=== PATIENT | female | born 1960 | race Hispanic/Latino ===

== ENCOUNTER 2018-01-31 09:32 | Emergency (ER) | payer OTHER ==
[2018-01-31 11:11] LABS: Absolute Lymphocytes (CBC) 1.8 K/uL (0.7-4.9); Absolute Monocytes 0.5 K/uL (0.1-1.3); Absolute Neutrophil 4.1 K/uL (1.8-8.0); Basophils % 0.4 % (0-1.3); Eosinophils % 2.3 % (0-4.4); Hematocrit 40.8 % (36.0-45.0); Lymphocytes % 27.5 % (15.3-44.8); MCH 30.8 pg (27.0-35.0); MCV 89.6 fL (80-100); MPV 10.9 fL (7.6-11.3); RBC Red Blood Cell Count 4.56 M/uL (3.86-4.86)
[2018-01-31 11:12] LABS: Protime INR 0.94
[2018-01-31 11:18] LABS: Bicarbonate 29 mEq/L (21-31); Glucose Level 113 mg/dL (65-120); Sodium Level 140 mEq/L (135-145)
[2018-01-31 11:24] LABS: ALT/SGPT 20 IU/L (10-60); AST/SGOT 22 IU/L (10-42); Alkaline Phosphatase 93 IU/L (42-121); BUN Blood Urea Nitrogen 14 mg/dL (6-20); Bilirubin Direct 0.1 mg/dL (0-0.2); Bilirubin Total 0.8 mg/dL (0.3-1.2); Magnesium 1.8 mg/dL (1.8-2.5); Protein, Total 7.1 g/dL (6.0-8.3)
--- NOTE | 2018-01-31 12:19 | RAD REPORT ---
EXAM DESCRIPTION: Danna Single View01/31/2018 11:03 am CLINICAL HISTORY: Chest pain COMPARISON: 2012 FINDINGS: The lungs appear clear of acute infiltrate. The heart is normal size IMPRESSION: No acute abnormalities displayed
--- NOTE | 2018-01-31 12:51 | RAD REPORT ---
EXAM DESCRIPTION: CT - Head Brain Wo Cont - 01/31/2018 12:41 pm CLINICAL HISTORY: Headache COMPARISON: 2009 TECHNIQUE: Computed axial tomography of the head was obtained. IV contrast was not requested. All CT scans are performed using dose optimization technique as appropriate and may include automated exposure control or mA/KV adjustment according to patient size. FINDINGS: An intracranial bleed is not seen . The ventricles are normal in caliber. No extra-axial fluid collection is noted. Fluid within the sinuses/ mastoids is not seen. IMPRESSION: No acute intracranial abnormality is seen. If patient's symptoms persist MRI of the bra in would be recommended.
[2018-01-31 12:59] LABS: Urine Blood TRACE (NEG); Urine Glucose NEGATIVE (NEG); Urine Protein NEGATIVE (NEG)
--- NOTE | 2018-01-31 13:08 | ER ---
Nurse's Notes [facility] Name: Kasey Altamirano Age: 57 yrs Sex: Female : 1960 Arrival Date: 01/31/2018 Time: 09:33 Bed 13 Private MD: Eb Katz Diagnosis: Pain in left arm Presentation: 01/31 10:01 Presenting complaint: Patient states: headache, nausea, L arm achiness that has gotten ss worse over the past two days. Transition of care: patient was not received from another setting of care. Onset of symptoms was January 29, 2018. Risk Assessment: Do you want to hurt yourself or someone else? Patient reports no desire to harm self or others. Initial Sepsis Screen: Does the patient meet any 2 criteria? No. Patient's initial sepsis screen is negative. Does the patient have a suspected source of infection? No. Patient's initial sepsis screen is negative. Care prior to arrival: None. 10:01 Method Of Arrival: Ambulatory ss 10:01 Acuity: JOSIAH 3 ss Historical: - Allergies: 10:03 Bactrim; ss - Home Meds: 10:03 losartan 100 mg oral tab 1 tab once daily [Active]; ss - PMHx: 10:03 Hypertension; ss - PSHx: 10:03 Hysterectomy; Cholecystectomy; left knee; ss - Immunization history:: Adult Immunizations up to date. - Social history:: Smoking status: Patient/guardian denies using tobacco. - Ebola Screening: : Patient denies exposure to infectious person Patient denies travel to an Ebola-affected area in the 21 days before illness onset. Screenin:04 Abuse screen: Denies threats or abuse. Denies injuries from another. Nutritional ss screening: No deficits noted. Tuberculosis screening: Never had TB. Fall Risk None identified. Assessment: 10:04 General: Appears uncomfortable, Behavior is calm, anxious, quiet, Reports fatigue for ss 2-3 days, Denies fever, feeling ill, chills. Pain: Complains of pain in left arm Pain currently is 4 out of 10 on a pain scale. Quality of pain is described as aching, Pain began 2-3 days ago. Is continuous. Neuro: Level of Consciousness is awake, alert, obeys commands, Oriented to person, place, time, situation. Neuro: Reports generalized headache that began 2 days ago. Cardiovascular: Capillary refill < 3 seconds is brisk in bilateral fingers. Respiratory: Airway is patent Respiratory effort is even, unlabored, Respiratory pattern is regular, symmetrical, Breath sounds are clear bilaterally. Respiratory: Denies cough, shortness of breath pain with respiration, pain with cough, pain with movement. GI: Reports nausea, Patient currently denies diarrhea, vomiting. : No signs and/or symptoms were reported regarding the genitourinary system. EENT: Oral mucosa is moist. Throat is clear. Derm: Skin is intact, is healthy with good turgor, Skin is dry, Skin is pink, warm \T\ dry. normal. Musculoskeletal: Capillary refill < 3 seconds, is brisk, in bilateral fingers. Swelling. 11:15 Reassessment: Patient and/or family updated on plan of care and expected duration. Pain hj level reassessed. Patient is alert, oriented x 3, equal unlabored respirations, skin warm/dry/pink. awaiting results;. Vital Signs: 10:03 BP 149 / 91; Pulse 77; Resp 16; Temp 98.5(TE); Pulse Ox 97% on R/A; Weight 104.33 kg; ss Height 5 ft. 1 in. (154.94 cm); Pain 5/10; 11:15 BP 149 / 73; Pulse 67; Resp 18; Pulse Ox 98% ; hj 13:34 BP 126 / 77; Pulse 72; Resp 18; Pulse Ox 97% on R/A; em 10:03 Body Mass Index 43.46 (104.33 kg, 154.94 cm) ED Course: 09:33 Patient arrived in ED. as 09:33 Eb Katz MD is Private Physician. as 10:03 Triage completed. ss 10:03 Arm band placed on right wrist. ss 10:04 Patient has correct armband on for positive identification. Bed in low position. Call ss light in reach. Side rails up X 1. courseware developer on. Pulse ox on. NIBP on. 10:06 Bhavesh Balbuena RN is Primary Nurse. hj 10:12 Brandan Monge PA is PHCP. jr8 10:12 Solomon Tanner MD is Attending Physician. jr8 11:03 X-ray completed. Portable x-ray completed in exam room. Patient tolerated procedure bb2 well. 11:03 XRAY Chest (1 view) In Process Unspecified. EDMS 11:06 Initial lab(s) drawn, by me, sent to lab. Urine collected: clean catch specimen, clear. 5 Inserted saline lock: 20 gauge in right antecubital area, using aseptic technique. Blood collected. 11:07 Side rails up X2. Warm blanket given. [facility] 11:10 EKG done, by ED staff, reviewed by Brandan ALVAREZ. [facility] 11:12 Bhavesh Balbuena, RN is Primary Nurse. 12:[address] 12:41 Patient moved back from [address]. sw 12:42 CT Head Brain wo Cont In Process Unspecified. EDMS 13:06 Eb Katz MD is Referral Physician. [facility] 13:33 Assist provider with bone marrow aspiration. IV discontinued, intact, bleeding em controlled, No redness/swelling at site. Pressure dressing applied. Administered Medications: No medications were administered Outcome: 13:07 Discharge ordered by MD. 8 13:33 Discharged to home ambulatory. em 13:33 Condition: good 13:33 Discharge instructions given to patient, Instructed on discharge instructions, follow up and referral plans. medication usage, Demonstrated understanding of instructions, follow-up care, medications, Prescriptions given X 2. 13:35 Patient left the ED. em Signatures: Dispatcher [employer] EDCA Dustin Mcduffie, LENS SHAPER GRINDER LENS SHAPER GRINDER Kayce Bonner Shelby, RN RN Brandan Juarez PA PA Danita Brown Bhavesh Balbuena, Alice High RN [facility] Dyan Ruff
--- NOTE | 2018-01-31 13:08 | EDPHYS ---
Physician Documentation [facility] Name: Kasey Altamirano Age: 57 yrs Sex: Female : 1960 Arrival Date: 01/31/2018 Time: 09:33 Bed 13 Private MD: Eb Katz ED Physician Solomon Tanner HPI: 01/31 10:42 This 57 yrs old Female presents to ER via Ambulatory with complaints of Arm jr8 Pain, Shoulder Pain. 10:42 The patient or guardian complains of pain. The complaints affect the left arm. Context: jr8 resulted from unknown cause. Onset: The symptoms/episode began/occurred acutely, 2 day(s) ago. Modifying factors: The symptoms are alleviated by nothing. the symptoms are aggravated by nothing. Associated signs and symptoms: Pertinent positives: nausea, headache. Severity of symptoms: At their worst the symptoms were moderate, in the emergency department the symptoms are unchanged. The patient has not experienced similar symptoms in the past. The patient has not recently seen a physician. Patient stated that her left arm has been aching for two days. Denies trauma to arm. Stated that she has had odd feeling dull headache and nausea as well. Denies chest pain or shortness of breath. Historical: - Allergies: 10:03 Bactrim; ss - Home Meds: 10:03 losartan 100 mg oral tab 1 tab once daily [Active]; ss - PMHx: 10:03 Hypertension; ss - PSHx: 10:03 Hysterectomy; Cholecystectomy; left knee; ss - Immunization history:: Adult Immunizations up to date. - Social history:: Smoking status: Patient/guardian denies using tobacco. - Ebola Screening: : Patient denies exposure to infectious person Patient denies travel to an Ebola-affected area in the 21 days before illness onset. ROS: 10:42 Eyes: Negative for injury, pain, redness, and discharge, ENT: Negative for injury, jr8 pain, and discharge, Neck: Negative for injury, pain, and swelling, Cardiovascular: Negative for chest pain, palpitations, and edema, Respiratory: Negative for shortness of breath, cough, wheezing, and pleuritic chest pain, Back: Negative for injury and pain, Skin: Negative for injury, rash, and discoloration. 10:42 Abdomen/GI: Positive for nausea, Negative for abdominal pain, vomiting, diarrhea, constipation, abdominal cramps, abdominal distension, anorexia, dysphagia, hematemesis, black/tarry stool, rectal pain, rectal bleeding, bowel incontinence, flatulence. 10:42 MS/extremity: Positive for pain, of the left arm. 10:42 Neuro: Positive for headache, Negative for altered mental status, dizziness, gait disturbance, hearing loss, loss of consciousness, numbness, seizure activity, speech changes, syncope, near syncope, tingling, tinnitus, tremor, visual changes, weakness. Exam: 10:42 Eyes: Pupils equal round and reactive to light, extra-ocular motions intact. Lids and jr8 lashes normal. Conjunctiva and sclera are non-icteric and not injected. Cornea within normal limits. Periorbital areas with no swelling, redness, or edema. ENT: Nares patent. No nasal discharge, no septal abnormalities noted. Tympanic membranes are normal and external auditory canals are clear. Oropharynx with no redness, swelling, or masses, exudates, or evidence of obstruction, uvula midline. Mucous membranes moist. Neck: Trachea midline, no thyromegaly or masses palpated, and no cervical lymphadenopathy. Supple, full range of motion without nuchal rigidity, or vertebral point tenderness. No Meningismus. Cardiovascular: Regular rate and rhythm with a normal S1 and S2. No gallops, murmurs, or rubs. Normal PMI, no JVD. No pulse deficits. Respiratory: Lungs have equal breath sounds bilaterally, clear to auscultation and percussion. No rales, rhonchi or wheezes noted. No increased work of breathing, no retractions or nasal flaring. Abdomen/GI: Soft, non-tender, with normal bowel sounds. No distension or tympany. No guarding or rebound. No evidence of tenderness throughout. Skin: Warm, dry with normal turgor. Normal color with no rashes, no lesions, and no evidence of cellulitis. MS/ Extremity: Pulses equal, no cyanosis. Neurovascular intact. Full, normal range of motion. Neuro: Awake and alert, GCS 15, oriented to person, place, time, and situation. Cranial nerves II-XII grossly intact. Motor strength 5/5 in all extremities. Sensory grossly intact. Cerebellar exam normal. Normal gait. 10:42 Back: pain, that is mild, of the left scapular area, ROM is normal, normal spinal alignment noted, CVA tenderness, is absent, vertebral tenderness, is not appreciated, muscle spasm, is not present. Vital Signs: 10:03 BP 149 / 91; Pulse 77; Resp 16; Temp 98.5(TE); Pulse Ox 97% on R/A; Weight 104.33 kg; ss Height 5 ft. 1 in. (154.94 cm); Pain 5/10; 11:15 BP 149 / 73; Pulse 67; Resp 18; Pulse Ox 98% ; hj 13:34 BP 126 / 77; Pulse 72; Resp 18; Pulse Ox 97% on R/A; em 10:03 Body Mass Index 43.46 (104.33 kg, 154.94 cm) ss MDM: 10:12 Patient medically screened. jr8 13:04 Data reviewed: vital signs, nurses notes, lab test result(s), EKG, radiologic studies, jr8 CT scan, plain films, and as a result, I will discharge patient. Data interpreted: Pulse oximetry: on room air is 98 %. Interpretation: normal. Counseling: I had a detailed discussion with the patient and/or guardian regarding: the historical points, exam findings, and any diagnostic results supporting the discharge/admit diagnosis, lab results, radiology results, the need for outpatient follow up, a family practitioner, to return to the emergency department if symptoms worsen or persist or if there are any questions or concerns that arise at home. ED course: No significant finding on CT or blood work. More then likely stain. Will try NSAIDs and Muscle relaxant. If not better in a week. Needs to f/u for c-spine imaging . 01/31 10:35 Order name: Basic Metabolic Panel; Complete Time: 11:40 01/31 10:35 Order name: BNP; Complete Time: 11:40 01/31 10:35 Order name: CBC with Diff; Complete Time: 11:40 01/31 10:35 Order name: LFT's; Complete Time: 11:40 01/31 10:35 Order name: Magnesium; Complete Time: 11:40 01/31 10:35 Order name: PT-INR; Complete Time: 11:40 01/31 10:35 Order name: Troponin (emerg Dept Use Only); Complete Time: 11:40 01/31 10:35 Order name: XRAY Chest (1 view); Complete Time: 12:24 01/31 10:35 Order name: EKG; Complete Time: 10:36 01/31 10:35 Order name: Cardiac monitoring; Complete Time: 11:12 01/31 10:35 Order name: EKG - Nurse/Tech; Complete Time: 11:12 01/31 10:35 Order name: IV Saline Lock; Complete Time: 11:12 01/31 10:49 Order name: Urine Dipstick--Ancillary (enter results); Complete Time: 13:04 1 01/31 12:25 Order name: CT Head Brain wo Cont; Complete Time: 12:58 01/31 10:35 Order name: Labs collected and sent; Complete Time: 11:12 01/31 10:35 Order name: O2 Per Protocol; Complete Time: 11:12 01/31 10:35 Order name: O2 Sat Monitoring; Complete Time: 11:13 01/31 10:35 Order name: Urine Dipstick-Ancillary (obtain specimen); Complete Time: 10:48 Administered Medications: No medications were administered Disposition: 19:03 Co-signature as Attending Physician, Solomon Tanner MD. Disposition: 01/31/18 13:07 Discharged to Home. Impression: Pain in left arm. - Condition is Stable. - Discharge Instructions: Musculoskeletal Pain. - Prescriptions for Mobic 7.5 mg Oral Tablet - take 1 tablet by ORAL route once daily take with food; 20 tablet. Cyclobenzaprine 10 mg Oral Tablet - take 1 tablet by ORAL route every 8 hours As needed; 30 tablet. - Medication Reconciliation Form, Thank You Letter, Antibiotic Education, Prescription Opioid Use form. - Follow up: Eb Katz MD; When: 1 week; Reason: Recheck today's complaints, Continuance of care, Re-evaluation by your physician. - Problem is new. - Symptoms have improved. Signatures: Dispatcher [employer] Dustin Bean, CHAR PULLER CHAR PULLER Glenis Franklin RN RN ss Roszak, Josh, KIM PA jr8 Bhavesh Balbuena RN RN hj Starr, Gregory, MD MD Corrections: (The following items were deleted from the chart) 13:35 13:07 01/31/2018 13:07 Discharged to Home. Impression: Pain in left arm. Condition is em Stable. Forms are Medication Reconciliation Form, Thank You Letter, Antibiotic Education, Prescription Opioid Use. Follow up: Eb Katz; When: 1 week; Reason: Recheck today's complaints, Continuance of care, Re-evaluation by your physician. Problem is new. Symptoms have improved. jr8
--- NOTE | 2018-02-01 06:42 | EKG ---
Test Date: 2018-01-31 Test Time: 10:36:07 Deblocker: LILIANA MEASUREMENT RESULTS: Intervals: Rate: 73 WV: 152 QRSD: 76 QT: 406 QTc: 447 [place]: P: 9 WV: 152 QRS: 1 T: 4 INTERPRETIVE STATEMENTS: Normal sinus rhythm Normal ECG Compared to ECG 08/15/2015 14:50:52 no significant change from previous ECG Electronically Signed On 02-01-18 06:41:48 CDT by Lorenzo Garcia
== END 2018-01-31 13:35 | disposition home or self-care (01) ==
LOC: ER 09:32
DX: M79.602 Pain in left arm (principal); I10 Essential (primary) hypertension; Z88.1 Allergy status to other antibiotic agents
CPT/HCPCS: 36415; 70450; 71045; 80048; 80076; 81003; 83735; 83880; 84484; 85025; 85610; 93005; 99285

== ENCOUNTER 2024-05-04 22:32 | Emergency (ER) | payer OTHER, SELFPAY ==
--- OUTSIDE RECORDS SUMMARY | 2024-05-04 22:35 | XMS REPORT | Continuity of Care Document ---
Author Name Unknown Address [address] [place] [address] [facility] Address [address] [place] [address] Care Team Providers Care Life Skills Educator Name Role Phone Unavailable Unavailable Unavailable Payers Payer Name Policy Type Policy Number Effective Date Expirati on Date Source Allergies, Adverse Reactions, Alerts Allergy Name Allergy Type Status Severity Reaction(s) Onset Date Inactive Date Treating Clinician Comments Source No Known Allergie s DA Active U 2017-08 00:00: 00 [facility] Encounters Start Date/Time End Date/Time Encounter Type Admission Type Attending Clinicians Care Facility Care Department Encounter ID Source 2024-04-06 16:50:13 2024-04-06 16:50:13 Outpatient [facility] [id number] Anup Brandon Otto 2024-02-04 07:50:33 2024-02-04 07:50:33 Outpatient [facility] SFA [id number] Anup Brandon Otto 2023-12-12 07:36:03 2023-12-12 07:36:03 Outpatient [facility] SFA [id number] Anup Brandon Otto 2023-11-07 07:25:47 2023-11-07 07:25:47 Outpatient [facility] SFA [id number] nAup Brandon Otto 2023-04-14 07:37:02 2023-04-14 07:37:02 Outpatient [facility] SFA [id number] Anup Aleksandr Otto 2022-12-18 07:30:05 2022-12-18 07:30:05 Outpatient [facility] SFA [id number] Anup Menjivar
[2024-05-04 23:26] LABS: Absolute Eosinophils 0.2 K/uL (0-0.5); Absolute Lymphocytes (CBC) 1.9 K/uL (0.7-4.9); Absolute Monocytes 0.7 K/uL (0.1-1.3); Absolute Neutrophil 4.5 K/uL (1.8-8.0); Basophils % 0.5 % (0-1.3); Eosinophils % 2.8 % (0-4.4); Hematocrit 39.8 % (36.0-45.0); Hemoglobin 13.5 g/dL (12.0-15.0); MCH 30.5 pg (27.0-35.0); MCHC 33.9 g/dL (32.0-36.0); MCV 90.1 fL (80-100); Monocytes % 9.1 % (3.3-12.3); Neutrophils % 61.6 % (41.7-73.7); Nucleated Red Blood Cells % 0.1 % (0-0); Platelets 185 thou/uL (152-406); RBC Red Blood Cell Count 4.42 M/uL (3.86-4.86); Red Cell Distribution Width 13.4 % (12.1-15.2)
[2024-05-04 23:32] LABS: PT Prothrombin Time 10.1 SECONDS (9.4-12.5); Protime INR 0.9
[2024-05-04 23:46] LABS: ALT/SGPT 30 U/L (13-56); AST/SGOT 19 U/L (15-37); Albumin 3.5 g/dL (3.4-5.0); Albumin/Globulin Ratio 0.9 (1.1-1.8); Alkaline Phosphatase 96 U/L (45-117); Anion Gap 8.6 mEq/L (5.0-15.0); BUN Blood Urea Nitrogen 16 mg/dL (7-18); Bicarbonate 27 mEq/L (21-32); Bilirubin Total 0.5 mg/dL (0.2-1.0); Globulin 3.7 g/dL (2.3-3.5); Glomerular Filtration Rate 69 ml/min (=/>90); Glucose Level 115 mg/dL (74-106); NT PRO-BNP 108 pg/mL (<125); Potassium 3.6 mEq/L (3.5-5.1); Protein, Total 7.2 g/dL (6.4-8.2); Sodium Level 139 mEq/L (136-145)
[2024-05-05 00:07] LABS: Bilirubin Direct < 0.2 mg/dL (0-0.2); Bilirubin Indirect, Calculated 0.3 mg/dL (0.2-0.8)
--- NOTE | 2024-05-05 00:49 | ER ---
Nurse's Notes [facility] Name: Kasey Altamirano Age: 63 yrs Sex: Female : 1960 Arrival Date: 05/04/2024 Time: 22:32 Bed 7 Private MD: Diagnosis: Episodic tension-type headache;Tinnitis Presentation: 05/04 23:03 Chief complaint: Patient states: Blood pressure has been high since last Friday. C/o lg3 headache, neck pain and ringing in the ears. Coronavirus screen: Vaccine status: Patient reports being unvaccinated. Ebola Screen: Patient negative for fever greater than or equal to 101.5 degrees Fahrenheit, and additional compatible Ebola Virus Disease symptoms. Initial Sepsis Screen: Does the patient meet any 2 criteria? No. Patient's initial sepsis screen is negative. Risk Assessment: Do you want to hurt yourself or someone else? Patient reports no desire to harm self or others. Onset of symptoms was 2023. Onset of symptoms was May 04, 2024 at 07:00. 23:03 Method Of Arrival: Ambulatory lg3 23:03 Acuity: JOSIAH 3 lg3 05/05 00:50 Initial Sepsis Screen: Does the patient have a suspected source of infection? No. bm8 Patient's initial sepsis screen is negative. Triage Assessment: 05/04 23:11 Headache History: The patient has had previous headaches and this one is more severe lg3 than previous episodes. General: Appears in no apparent distress. obese, well groomed, Behavior is calm. Pain: Pain currently is 4 out of 10 on a pain scale. Pain began Headaches started last Wednesdays. Neuro: No deficits noted. Historical: - Allergies: 23:07 Bactrim; lg3 - Home Meds: 23:07 losartan 100 mg Oral tab 1 tab once daily [Active]; Coreg 3.125 mg oral tablet 1 tab 2 lg3 times per day for hypertension [Active]; - PMHx: 23:07 Hypertension; lg3 - PSHx: 23:07 Cholecystectomy; Total abdominal hysterectomy; lg3 - Immunization history:: Adult Immunizations up to date, Client reports having NOT received the Covid vaccine. Last tetanus immunization: unknown, Pneumococcal vaccine status is unknown, Flu vaccine is not up to date. Patient has never been vaccinated. - Infectious Disease History:: Denies. - Social history:: Smoking status: Patient denies any tobacco usage or history of. - Family history:: not pertinent. Screenin/18 00:17 [facility] ED Fall Risk Assessment (Adult) History of falling in the last 3 months, dd2 including since admission No falls in past 3 months (0 pts) Confusion or Disorientation No (0 pts) Intoxicated or Sedated No (0 pts) Impaired Gait No (0 pts) Mobility Assist Device Used No (0 pt) Altered Elimination No (0 pt) Score/Fall Risk Level 0 - 2 = Low Risk Oriented to surroundings, Maintained a safe environment, Educated pt \T\ family on fall prevention, incl call for assistance when getting out of bed, Hourly rounding (assess needs \T\ fall precautionary measures) done. Abuse screen: Denies threats or abuse. Nutritional screening: No deficits noted. Tuberculosis screening: No symptoms or risk factors identified. Assessment: 00:17 General: Appears in no apparent distress. Behavior is calm, cooperative, appropriate dd2 for age. Pain: Complains of pain in top of head, forehead, left base of the skull and right base of the skull Pain currently is 4 out of 10 on a pain scale. Neuro: No deficits noted. Level of Consciousness is awake, alert, obeys commands, Oriented to person, place, time, situation, Appropriate for age Pipe Manufacture Supervisor are equal bilaterally Moves all extremities. Gait is steady, Speech is normal, Facial symmetry appears normal. Cardiovascular: Denies chest pain, Heart tones S1 S2 Patient's skin is warm and dry. Rhythm is sinus rhythm. Respiratory: No deficits noted. Airway is patent Respiratory effort is even, unlabored, Respiratory pattern is regular, symmetrical. GI: No deficits noted. No signs and/or symptoms were reported involving the gastrointestinal system. Abdomen is non-distended, Abd is soft and non tender. : No deficits noted. No signs and/or symptoms were reported regarding the genitourinary system. EENT: No deficits noted. No signs and/or symptoms were reported regarding the EENT system. Derm: No deficits noted. No signs and/or symptoms reported regarding the dermatologic system. Musculoskeletal: No deficits noted. No signs and/or symptoms reported regarding the musculoskeletal system. Range of motion: intact in all extremities. 00:48 Reassessment: Patient appears in no apparent distress at this time. Patient and/or bm8 family updated on plan of care and expected duration. Pain level reassessed. Patient is alert, oriented x 3, equal unlabored respirations, skin warm/dry/pink. Pain: Pain currently is 4 out of 10 on a pain scale. Vital Signs: 05/04 23:03 BP 189 / 109; Pulse 79; Resp 20; Temp 97.6; Pulse Ox 99% ; Weight 111.58 kg; Height 5 lg3 ft. 1 in. ; Pain 4/10; 05/05 00:17 BP 149 / 72; Pulse 73; Resp 16; Pulse Ox 98% on R/A; dd2 00:48 BP 149 / 81; Pulse 69; Resp 18; Temp 97.6; Pulse Ox 99% ; Pain 4/10; bm8 05/04 23:03 Body Mass Index 46.48 (111.58 kg, 154.94 cm) lg3 05/04 23:03 Pain Scale: Adult lg3 00:48 Pain Scale: Adult bm8 Alvo Coma Score: 00:17 Eye Response: spontaneous(4). Motor Response: obeys commands(6). Verbal Response: dd2 oriented(5). Total: 15. 00:48 Eye Response: spontaneous(4). Motor Response: obeys commands(6). Verbal Response: bm8 oriented(5). Total: 15. 05:57 Eye Response: spontaneous(4). Motor Response: obeys commands(6). Verbal Response: sp4 oriented(5). Total: 15. 06:01 Eye Response: spontaneous(4). Motor Response: obeys commands(6). Verbal Response: sp4 oriented(5). Total: 15. ED Course: 05/04 22:35 Patient arrived in ED. im 22:37 Daron Murray MD is Attending Physician. sp4 22:54 XRAY Chest (1 view) In Process Unspecified. EDMS 22:59 CT Head Brain wo Cont In Process Unspecified. EDMS 23:00 Inserted saline lock: 20 gauge in right antecubital area, using aseptic technique. kmf Blood collected. Flushed with 10 mL NS. 23:07 Triage completed. lg3 23:56 Basic Metabolic Panel Sent. kmf 23:56 LFT's Sent. kmf 23:56 Magnesium Sent. kmf 23:56 NT PRO-BNP Sent. [facility] 23:56 Troponin HS Sent. [facility] 05/05 00:00 MARLEEN EDWARDS, RN is Primary Nurse. dd2 00:17 No provider procedures requiring assistance completed. dd2 00:17 Patient has correct armband on for positive identification. Bed in low position. Call dd2 light in reach. Side rails up X 1. Client placed on continuous cardiac and pulse oximetry monitoring. NIBP monitoring applied. hospital monitor on. Door closed. Warm blanket given. Verbal reassurance given. 00:45 Nona Galo MD is Referral Physician. sp4 00:48 IV discontinued, intact, bleeding controlled, No redness/swelling at site. Pressure bm8 dressing applied. 00:48 Provided Education on: post er care. bm8 00:50 Arm band placed on right wrist. bm8 Administered Medications: No medications were administered Medication: 00:17 VIS not applicable for this client. dd2 Outcome: 00:49 Discharge ordered by MD. sp4 00:50 Discharged to home ambulatory, bm8 00:50 Condition: stable 00:50 Discharge instructions given to patient, family, Instructed on discharge instructions, follow up and referral plans. medication usage, safety practices, Demonstrated understanding of instructions, follow-up care, medications, 00:57 Patient left the ED. bm8 00:57 Prescriptions given X 1, bm8 Signatures: Dispatcher [employer] EDMS Annie Villa, RN RN lg3 Daron Murray MD MD sp4 Lakeisha Raymundo Kelsey Maroul [facility] Jason Cifuentes RN RN bm8 MARLEEN EDWARDS, RN RN dd2 Corrections: (The following items were deleted from the chart) 00:57 00:48 BP 174 / 78; Pulse 69bpm; Resp 18bpm; Pulse Ox 99%; Temp 97.6F; Pain 4/10, Adult; bm8 bm8
--- NOTE | 2024-05-05 00:49 | EDPHYS ---
Physician Documentation [facility] Name: Kasey Altamirano Age: 63 yrs Sex: Female : 1960 Arrival Date: 05/04/2024 Time: 22:32 Bed 7 Private MD: ED Physician Daron Murray HPI: 05/04 22:37 This 63 yrs old Female presents to ER via Unassigned with complaints of sp4 Blurred Vision, Headache, High Blood Pressure. 05/05 05:57 63-year-old female presents to the emergency room with complaint of persistent sp4 headaches for the past several days associated with blurry vision and elevated blood pressure. . Historical: - Allergies: 05/04 23:07 Bactrim; lg3 - Home Meds: 23:07 losartan 100 mg Oral tab 1 tab once daily [Active]; Coreg 3.125 mg oral tablet 1 tab 2 lg3 times per day for hypertension [Active]; - PMHx: 23:07 Hypertension; lg3 - PSHx: 23:07 Cholecystectomy; Total abdominal hysterectomy; lg3 - Immunization history:: Adult Immunizations up to date, Client reports having NOT received the Covid vaccine. Last tetanus immunization: unknown, Pneumococcal vaccine status is unknown, Flu vaccine is not up to date. Patient has never been vaccinated. - Infectious Disease History:: Denies. - Social history:: Smoking status: Patient denies any tobacco usage or history of. - Family history:: not pertinent. ROS: 05/05 05:57 Constitutional: Negative for fever, chills, and weight loss, sp4 Constitutional: Negative for fever, chills, and weight loss, positive headache, positive for blurry vision All other systems are negative, Exam: 05:57 Constitutional: This is a well developed, well nourished patient who is awake, alert, sp4 and in no acute distress. Head/Face: Normocephalic, atraumatic. Eyes: Pupils equal round and reactive to light, extra-ocular motions intact. Lids and lashes normal. Conjunctiva and sclera are not injected. Cornea within normal limits. Periorbital areas with no swelling, redness, or edema. ENT: Nares patent. No nasal discharge, no septal abnormalities noted. Tympanic membranes are normal and external auditory canals are clear. Oropharynx with no redness, swelling, or masses, exudates, or evidence of obstruction, uvula midline. Mucous membranes moist. Neck: Trachea midline, no thyromegaly or masses palpated, and no cervical lymphadenopathy. Supple, full range of motion without nuchal rigidity, or vertebral point tenderness. Chest/axilla: Normal chest wall appearance and motion. Nontender with no deformity. No lesions are appreciated. Cardiovascular: Regular rate and rhythm with a normal S1 and S2. No gallops, murmurs, or rubs. Normal PMI, no JVD. No pulse deficits. Respiratory: Lungs have equal breath sounds bilaterally, clear to auscultation and percussion. No rales, rhonchi or wheezes noted. No increased work of breathing, no retractions or nasal flaring. Abdomen/GI: Soft, with normal bowel sounds. No distension or tympany. No guarding or rebound. No evidence of tenderness throughout. Back: No spinal tenderness. No costovertebral tenderness. Skin: Warm, dry with normal turgor. Normal color with no rashes, no lesions, and no evidence of cellulitis. MS/ Extremity: Pulses equal, no cyanosis. Neurovascular intact. Full, normal range of motion. Neuro: Awake and alert, GCS 15, oriented to person, place, time, and situation. Cranial nerves II-XII grossly intact. Motor strength 5/5 in all extremities. Sensory grossly intact. Psych: Awake, alert, with orientation to person, place and time. Behavior, mood, and affect are within normal limits 05:57 EKG at 0010 normal sinus rhythm normal EKG sp4 05:57 ECG was reviewed by the Attending Physician. sp4 Vital Signs: 05/04 23:03 BP 189 / 109; Pulse 79; Resp 20; Temp 97.6; Pulse Ox 99% ; Weight 111.58 kg; Height 5 lg3 ft. 1 in. ; Pain 4/10; 05/05 00:17 BP 149 / 72; Pulse 73; Resp 16; Pulse Ox 98% on R/A; dd2 00:48 BP 149 / 81; Pulse 69; Resp 18; Temp 97.6; Pulse Ox 99% ; Pain 4/10; bm8 05/04 23:03 Body Mass Index 46.48 (111.58 kg, 154.94 cm) lg3 05/04 23:03 Pain Scale: Adult lg3 00:48 Pain Scale: Adult bm8 [place] Coma Score: 00:17 Eye Response: spontaneous(4). Motor Response: obeys commands(6). Verbal Response: dd2 oriented(5). Total: 15. 00:48 Eye Response: spontaneous(4). Motor Response: obeys commands(6). Verbal Response: bm8 oriented(5). Total: 15. 05:57 Eye Response: spontaneous(4). Motor Response: obeys commands(6). Verbal Response: sp4 oriented(5). Total: 15. 06:01 Eye Response: spontaneous(4). Motor Response: obeys commands(6). Verbal Response: sp4 oriented(5). Total: 15. MDM: 00:41 ED course: TECHNIQUE: Axial computed tomography images of the head/brain without sp4 intravenous contrast. Sagittal and coronal reformatted images were created and reviewed. This CT exam was performed using one or more of the following dose reduction techniques: automated exposure control, adjustment of the mA and/or kV according to patient size, and/or use of iterative reconstruction technique. COMPARISON: CT of the head January 31, 2018 FINDINGS: BRAIN: Unremarkable. The maguire-white matter differentiation is preserved . No hemorrhage. No significant white matter disease. No edema. No extra-axial fluid collections. VENTRICLES: Unremarkable. No ventriculomegaly. BONES/JOINTS: No acute fracture. SOFT TISSUES: Unremarkable. SINUSES: Unremarkable as visualized. No acute sinusitis. MASTOID AIR CELLS: Unremarkable as visualized. No mastoid effusion. ORBITS: Unremarkable as visualized. IMPRESSION: No acute intracranial findings. Electronically signed by: Luci Naylor MD 05/04/2024 11:39 PM. 00:49 Patient medically screened. 4 06:01 Differential diagnosis: hypertensive headache, hyponatremia, migraine, uremia, sp4 vasomotor headache. Data reviewed: vital signs, nurses notes, lab test result(s), radiologic studies, CT scan. Consideration of Admission/Observation Escalation of care including admission/observation considered. 05/04 22:38 Order name: Basic Metabolic Panel; Complete Time: 00:41 sp4 05/04 22:38 Order name: CBC with Diff; Complete Time: 00:41 sp4 05/04 22:38 Order name: LFT's; Complete Time: 00:41 sp4 05/04 22:38 Order name: Magnesium; Complete Time: 00:41 sp4 05/04 22:38 Order name: NT PRO-BNP; Complete Time: 00: sp4 05/04 22:38 Order name: PT-INR; Complete Time: 00:41 sp4 05/04 22:38 Order name: Troponin HS; Complete Time: 00:41 sp4 05/04 22:38 Order name: XRAY Chest (1 view) sp4 05/04 22:38 Order name: CT Head Brain wo Cont sp4 05/04 22:38 Order name: Cardiac monitoring; Complete Time: 00:13 sp4 05/04 22:38 Order name: EKG - Nurse/Tech; Complete Time: 00: sp4 05/04 22:38 Order name: IV Saline Lock; Complete Time: 00: sp4 05/04 22:38 Order name: Labs collected and sent; Complete Time: 00: sp4 05/04 22:38 Order name: O2 Per Protocol; Complete Time: 00: sp4 05/04 22:38 Order name: O2 Sat Monitoring; Complete Time: 00:4 EC:57 Rate is 72 beats/min. Rhythm is regular, Normal Sinus Rhythm. QRS [place] is Normal. NM sp4 interval is normal. QRS interval is normal. QT interval is normal. No Q waves. T waves are Normal. No ST changes noted. Clinical impression: Normal ECG. Interpreted by me. Reviewed by me. Administered Medications: No medications were administered Disposition: 06:03 Chart complete. sp4 Disposition Summary: 05/05/24 00:49 Discharge Ordered Notes: Location: Home sp4 Problem: new sp4 Symptoms: have improved sp4 Condition: Stable sp4 Diagnosis - Episodic tension-type headache sp4 - Tinnitis sp4 Followup: sp4 - With: Nona Galo MD - When: 7 - 10 days - Reason: Recheck today's complaints Discharge Instructions: - Discharge Summary Sheet sp4 - Tinnitus sp4 Forms: - Patient Portal Instructions sp4 Prescriptions: - Fioricet 50-300-40 mg Oral capsule - take 1 capsule ORAL route every 8 hours PRN headaches; 30 capsule; Refills: 0, sp4 Product Selection Permitted Signatures: Dispatcher [employer] Annie Cazares RN RN lg3 Daron Murray MD MD sp4 Corrections: (The following items were deleted from the chart) 05/04 22:38 22:38 BASIC METABOLIC PANEL+C.LAB.BRZ ordered. EDMS EDMS 22:38 22:38 CBC+H.LAB.BRZ ordered. EDMS EDMS 22:38 22:38 HEPATIC FUNCTION+C.LAB.BRZ ordered. EDMS EDMS 22:38 22:38 MAGNESIUM+C.LAB.BRZ ordered. EDMS EDMS 22:38 22:38 PROBNP+C.LAB.BRZ ordered. EDMS EDMS 22:38 22:38 PROTIME (+INR)+COAG.LAB.BRZ ordered. EDMS EDMS 22:38 22:38 Troponin High Sensitivity+C.LAB.BRZ ordered. EDMS EDMS 22:38 22:38 Chest Single View+RAD.RAD.BRZ ordered. EDMS EDMS 22:38 22:38 Head Brain Wo Cont+CT.RAD.BRZ ordered. EDMS EDMS
[2024-05-05 01:56] VITALS: TEMP 97.6
[2024-05-05 01:59] VITALS: BP 149/81; O2SAT 99
--- NOTE | 2024-05-05 08:25 | RAD REPORT ---
EXAM: ONE VIEW CHEST X-RAY INDICATION: CHEST PAIN. 63-year-old female. COMPARISON: No relevant imaging studies FINDINGS: A single PA hypoventilatory view of the chest was obtained. No consolidation, pulmonary venous hypertension, pneumothorax, or significant pleural effusion. Cardiac silhouette and central bronchovascular markings accentuated secondary to hypoventilatory effo rt. Mild multilevel thoracic spondylosis. IMPRESSION: 1. No acute cardiopulmonary process. Electronically signed by: Brijesh Monzon MD 05/04/2024 11:08 PM CDT Due to temporary technical issues with the PACS/[employer] reporting system, reports are being george d by the in-house radiologist without review as a courtesy to ensure prompt reporting the interpreting radiologist is fully responsible for the content of the report. Transcribed Date/Time: 05/05/2024 8:25 AM
--- NOTE | 2024-05-05 08:27 | RAD REPORT ---
EXAM: CT Head Without Intravenous Contrast CLINICAL HISTORY: The patient is 63 years old and is Female; CONFUSED TECHNIQUE: Axial computed tomography images of the head/brain without intravenous contrast. Sagittal and coronal reformatted images were created and reviewed. This CT exam was performed using one or more of the following dose reduction te chniques: automated exposure control, adjustment of the mA and/or kV according to patient size, and/or use of iterative r econstruction technique. COMPARISON: CT of the head January 31, 2018 FINDINGS: BRAIN: Unremarkable. The maguire-white matter differentiation is preserved . No hemorrhage. No significa nt white matter disease. No edema. No extra-axial fluid collections. VENTRICLES: Unremarkable. No ventriculomegaly. BONES/JOINTS: No acute fracture. SOFT TISSUES: Unremarkable. SINUSES: Unremarkable as visualized. No acute sinusitis. MASTOID AIR CELLS: Unremarkable as visualized. No mastoid effusion. ORBITS: Unremarkable as visualized. IMPRESSION: No acute intracranial findings. Electronically signed by: Luci Naylor MD 05/04/2024 11:39 PM CDT Due to temporary technical issues with the PACS/[employer] reporting system, reports are being george d by the in-house radiologist without review as a courtesy to ensure prompt reporting the interpreting radiologist is fully responsible for the content of the report. Transcribed Date/Time: 05/05/2024 8:27 AM
--- NOTE | 2024-05-06 12:22 | EKG ---
Test Date: 2024-05-05 Test Time: 00:10:43 Evp General Counsel: JEREMIAH MEASUREMENT RESULTS: Intervals: Rate: 72 NC: 148 QRSD: 76 QT: 404 QTc: 442 [place]: P: 52 NC: 148 QRS: 57 T: 58 INTERPRETIVE STATEMENTS: Normal sinus rhythm Normal ECG Compared to ECG 01/31/2018 10:36:07 No significant changes Electronically Signed On 05-06-24 12:17:57 CDT by Shaheen Albright
== END 2024-05-05 00:57 | disposition home or self-care (01) ==
LOC: ER 22:32
DX: G44.219 Episodic tension-type headache, not intractable (principal); H93.19 Tinnitus, unspecified ear; I10 Essential (primary) hypertension
CPT/HCPCS: 36415; 70450; 71045; 80048; 80076; 83735; 83880; 84484; 85025; 85610; 93005; 99284

== ENCOUNTER 2025-05-30 09:41 | Emergency (ER) | payer OTHER ==
--- OUTSIDE RECORDS SUMMARY | 2025-05-30 09:44 | XMS REPORT | Continuity of Care Document ---
Author Name Unknown Address [address] [facility] [address] [place] [address] [facility] Address [address] [facility] [address] [place] [address] Care Team Providers Care Tailings Worker Name Role Phone Unavailable Unavailable Unavailable Payers Payer Name Policy Type Policy Number Effective Date Expirati on Date Source Allergies, Adverse Reactions, Alerts Allergy Name Allergy Type Status Severity Reaction(s) Onset Date Inactive Date Treating Clinician Comments Source No Known Allergie s DA Active U 2017-08 00:00: 00 [facility] Encounters Start Date/Time End Date/Time Encounter Type Admission Type Attending Clinicians Care Facility Care Department Encounter ID Source 2025-03-18 10:03:11 2025-03-18 10:03:11 Outpatient SFA SFA [id number] Anup Brandon Otto 2025-03-09 08:15:24 2025-03-09 08:15:24 Outpatient SFA SFA [id number] Anup Brandon Otto 2025-03-04 09:59:19 2025-03-04 09:59:19 Outpatient SFA SFA [id number] Anup F Otto 2025-03-02 13:17:20 2025-03-02 13:17:20 Outpatient SFA SFA [id number] Anup Menjivar 2025-01-18 14:26:37 2025-01-18 14:26:37 Outpatient SFA SFA [id number] Anup Menjivar 2024-12-10 09:37:58 2024-12-10 09:37:58 Outpatient SFA SFA [id number] Anup Menjivar 2024-05-14 07:37:01 2024-05-14 07:37:01 Outpatient SFA SFA [id number] Anup Menjivar 2024-05-11 13:13:53 2024-05-11 13:13:53 Outpatient SFA SFA [id number] Anup Menjivar 2024-04-06 16:50:13 2024-04-06 16:50:13 Outpatient SFA SFA [id number] Anup Menjivar 2024-02-04 07:50:33 2024-02-04 07:50:33 Outpatient SFA SFA [id number] Anup Menjivar 2023-12-12 07:36:03 2023-12-12 07:36:03 Outpatient SFA SFA [id number] Anup Menjivar 2023-11-07 07:25:47 2023-11-07 07:25:47 Outpatient SFA SFA [id number] Anup Menjivar 2023-04-14 07:37:02 2023-04-14 07:37:02 Outpatient SFA SFA [id number] Anup Menjivar 2022-12-18 07:30:05 2022-12-18 07:30:05 Outpatient SFA SFA [id number] Anup Menjivar
[2025-05-30] MEDS ORDERED: ONDANSETRON 4 MG/2 ML VIAL ONE (10:08)
[2025-05-30] MEDS ORDERED: NA CHLORIDE 0.9% 1,000 ML ONE (10:08)
[2025-05-30] MEDS ORDERED: FAMOTIDINE 20 MG/2 ML VIAL IV ONE (10:08)
[2025-05-30 10:29] LABS: Absolute Lymphocytes (CBC) 1.7 K/uL (0.7-4.9); Hematocrit 46.0 % (36.0-45.0); Hemoglobin 15.3 g/dL (12.0-15.0); MCH 30.0 pg (27.0-35.0); MCHC 33.1 g/dL (32.0-36.0); MCV 90.4 fL (80-100); MPV 10.4 fL (7.6-11.3); Nucleated RBC Absolute Count 0.0 (0-0); Nucleated Red Blood Cells % 0.0 % (0-0); RBC Red Blood Cell Count 5.09 M/uL (3.86-4.86); White Blood Count 9.20 thou/uL (4.3-10.9)
[2025-05-30 11:04] LABS: ALT/SGPT 23.0 U/L (13-56); AST/SGOT 18.0 U/L (15-37); Albumin 3.8 g/dL (3.4-5.0); Albumin/Globulin Ratio 1.0 (1.1-1.8); Alkaline Phosphatase 119.0 U/L (45-117); Anion Gap 9.3 mEq/L (5.0-15.0); BUN Blood Urea Nitrogen 20.0 mg/dL (7-18); Globulin 4.0 g/dL (2.3-3.5); Glucose Level 110.0 mg/dL (74-106); Lipase 20.0 U/L (13-75); Potassium 4.3 mEq/L (3.5-5.1); Troponin High Sensitivity 5.9 pg/mL (<58.9)
--- NOTE | 2025-05-30 11:22 | RAD REPORT ---
EXAMINATION: ONE VIEW CHEST XR CLINICAL INDICATION: Female, 64 years old.,CHEST PAIN TECHNIQUE: Frontal chest projection is submitted. Examination is limited by patient positioning and t echnique. COMPARISON: 05/04/2024 FINDINGS: The lungs are well inflated and clear. No pneumothorax or sizable effusion. The heart is normal in s ize. Mediastinal contours are unremarkable. IMPRESSION: No acute intrathoracic abnormalities.
--- NOTE | 2025-05-30 12:02 | RAD REPORT ---
EXAMINATION: CT Abdomen Pelvis W Contrast CLINICAL INDICATION: Female, 64 years old. ABD PAIN TECHNIQUE: CT abdomen and pelvis was performed, after the administration of IV [facility] Axial, sagittal and coronal reconstructions were obtained. One or more of the following dose reduction techniques were used: Automated exposure control, adjustment of the mA and k V according to patient size, and iterative reconstruction. Unless otherwise specified, incidental findings do not require dedicated imaging follow-up. COMPARISON: 04/10/2016 FINDINGS: LOWER CHEST: The visualized lung bases are clear. LIVER: Normal in size and contour. No focal lesion. BILIARY SYSTEM: Status post cholecystectomy. SPLEEN: Normal size. No focal lesion. PANCREAS: No mass, ductal dilation, or bere-pancreatic fluid. ADRENALS: Normal; no mass. KIDNEYS: Normal size and contour. No hydronephrosis. URINARY BLADDER: Unremarkable. GASTROINTESTINAL TRACT: Left flank small bowel distention with air-fluid levels, with gradual transit ion to nondistended small bowel in the right lower quadrant. Mild mucosal hyperenhancement along the distended segment. Distal colonic diverticulosis without evidence of acute diverticulitis. No amadeo dence of free air, significant intra-abdominal free fluid, or abscess. APPENDIX: Normal appendix. LYMPH NODES: No lymphadenopathy. MUSCULOSKELETAL: No acute or suspicious osseous abnormality. ADDITIONAL FINDINGS: Nonspecific mild fat stranding in the mesenteric root, stable. This could be idi opathic or related to multiple possible etiologies, including but not limited to an upper abdominal infectious/inflammatory process. Stability suggests benign nature. Small umbilical hernia containing fat. IMPRESSION: Long segments of left flank small bowel distention with mild mucosal hyperenhancement. Gradual transi tion to nondistended small bowel. Findings suggest ileus rather than obstruction. Concomitant enteritis could be present. Other incidental findings as above.
--- NOTE | 2025-05-30 12:15 | EDPHYS ---
Physician Documentation [facility] Name: Kasey Altamirano Age: 64 yrs Sex: Female : 1960 Arrival Date: 05/30/2025 Time: 09:41 Bed 17 Private MD: ED Physician Jose Christianson HPI: 05/30 09:54 This 64 yrs old Female presents to ER via Unassigned with complaints of kb Abdominal Pain, Back Pain. 09:54 Pt is a 64 year old female who presents for LUQ pain that radiates through abd and to kb back that started yesterday. Reports acid reflux as well. Reports nausea, vomiting. Denies fever, diarrhea. . Historical: - Allergies: 10:06 Bactrim; hb - Home Meds: 10:06 Coreg 3.125 mg Oral tablet 1 tab 2 times per day for Hypertension [Active]; losartan hb 100 mg Oral tab 1 tab once daily [Active]; - PMHx: 10:06 Hypertension; hb - PSHx: 10:06 Cholecystectomy; Total abdominal hysterectomy; hb - Immunization history:: Adult Immunizations not immunized. - Infectious Disease History:: Denies. - Social history:: Smoking status: Patient denies any tobacco usage or history of. Patient/guardian denies using alcohol. ROS: 09:55 Constitutional: As per HPI kb Exam: 09:58 Constitutional: This is a well developed, well nourished patient who is awake, alert, kb and in no acute distress. Head/Face: Normocephalic, atraumatic. ENT: Moist Mucous membranes Cardiovascular: Regular rate Respiratory: Respirations even and unlabored. No increased work of breathing. Talking in full sentences Skin: Warm, dry with normal turgor. Normal color. MS/ Extremity: Pulses equal, no cyanosis. Neurovascular intact. Full, normal range of motion. Neuro: Awake and alert, GCS 15, oriented to person, place, time, and situation. 09:58 Abdomen/GI: Inspection: obese Bowel sounds: normal, Palpation: soft, in all quadrants, moderate abdominal tenderness, in the left upper quadrant, 10:34 ECG was reviewed by the Attending Physician. kb Vital Signs: 10:05 BP 174 / 92; Pulse 90; Resp 16; Temp 97.9; Pulse Ox 100% on R/A; Weight 111.13 kg; hb Height 5 ft. 1 in. ; Pain 5/10; 12:00 BP 145 / 73; Pulse 85; Resp 18; Temp 98.4; Pulse Ox 97% on R/A; zm 10:05 Body Mass Index 46.29 (111.13 kg, 154.94 cm) hb 10:05 Pain Scale: Adult hb [place] Coma Score: 10:00 Eye Response: spontaneous(4). Motor Response: obeys commands(6). Verbal Response: zm oriented(5). Total: 15. 12:00 Eye Response: spontaneous(4). Motor Response: obeys commands(6). Verbal Response: zm oriented(5). Total: 15. MDM: 09:44 Medical Screening Exam initiated kb 12:08 Differential diagnosis: bowel obstruction, diverticulitis, gastritis, gastroesophageal kb reflux disease, non-specific abd pain, pancreatitis. Data reviewed: vital signs, nurses notes. Consideration of Admission/Observation Escalation of care including admission/observation considered. Admission considered and recommended but patient does not want to be admitted. States she will try home remedies and return if pain worsens.. Counseling: I had a detailed discussion with the patient and/or guardian regarding the historical points, exam findings, and any diagnostic results supporting the discharge/admit diagnosis, lab results, radiology results, the need for further work-up and treatment in the hospital. 05/30 09:56 Order name: CBC with Diff; Complete Time: 10:34 kb 05/30 09:56 Order name: CMP; Complete Time: 11:05 kb 05/30 09:56 Order name: Lipase; Complete Time: 11:05 kb 05/30 09:56 Order name: Troponin HS; Complete Time: 11:05 kb 05/30 09:56 Order name: XRAY Chest (1 view); Complete Time: 11:26 kb 05/30 09:58 Order name: CT Abd/Pelvis - IV Contrast Only; Complete Time: 12:06 kb 05/30 09:56 Order name: IV Saline Lock; Complete Time: 10:27 kb 05/30 09:56 Order name: Labs collected and sent; Complete Time: 10:27 kb 05/30 09:56 Order name: EKG - Nurse/Tech; Complete Time: 10:27 kb EC:34 Rate is 91 beats/min. Rhythm is regular. QRS [place] is Normal. [place] interval is normal at kb 142 msec. QRS interval is normal at 78 msec. QT interval is normal at 469 msec. Administered Medications: 10:27 Drug: Famotidine IVP 20 mg IVP once; dilute with 10 mL 0.9% NaCl; give over 2 minutes zm Route: IVP; Site: right antecubital; 12:44 Follow up: Response: No adverse reaction iw 10:27 Drug: Ondansetron IVP 4 mg IVP once; over 2 minutes Route: IVP; Site: right antecubital;zm 12:40 Follow up: Response: No adverse reaction; Nausea is decreased iw 10:27 Drug: NS 0.9% IV 1000 ml IV at 1 bolus Per protocol; to be given as a bolus over 60 zm minutes Route: IV; Rate: 1 bolus; Site: right antecubital; 12:43 Follow up: IV Status: Completed infusion iw 12:40 Drug: Magnesium Citrate PO Liquid 300 ml PO once Route: PO; zm 12:44 Follow up: Response: No adverse reaction iw Disposition: 17:48 Co-signature as Attending Physician, Jose Christianson MD I reviewed the patient's care rn provided by the Advanced Practice Provider and agree with the diagnosis and treatment plan. Disposition Summary: 05/30/25 12:15 Discharge Ordered Notes: Location: Home kb Condition: Stable kb Diagnosis - Ileus, unspecified kb Followup: kb - With: Emergency Department - When: As needed - Reason: Worsening of condition Followup: kb - With: Private Physician - When: 2 - 3 days - Reason: Recheck today's complaints, Continuance of care, Re-evaluation by your physician Discharge Instructions: - Discharge Summary Sheet kb - Bowel Obstruction, [id number] kb - Ileus kb Forms: - Medication Reconciliation Form kb - Antibiotic Education kb - Prescription Opioid Use kb - Patient Portal Instructions kb - Leadership Thank You Letter kb Prescriptions: - ondansetron 4 mg Oral Tablet,disintegrating - take 1 tablet ORAL route every 6 hours as needed for nausea and vomiting; 12 kb tablet; Refills: 0, Product Selection Permitted Signatures: Dispatcher [employer] EDVianey Fong FNP-C FNP-Jose Clifton MD MD rn Baxter, Heather, RN RN Niki Mcgraw RN RN zm Williams, Irene RN iw Corrections: (The following items were deleted from the chart) 09:56 09:56 Chest Single View+[email or web address] ordered. EDMS EDMS 12:15 12:08 Consideration of Admission/Observation Patient was admitted/placed on kb observation. Escalation of care including admission/observation considered. kb
--- NOTE | 2025-05-30 12:15 | ER ---
Nurse's Notes [facility] Name: Kasey Altamirano Age: 64 yrs Sex: Female : 1960 Arrival Date: 05/30/2025 Time: 09:41 Bed 17 Private MD: Diagnosis: Ileus, unspecified Presentation: 05/30 10:05 Chief complaint: Epigastric pain that radiates to back and nausea x 2 days. Coronavirus hb screen: At this time, the client does not indicate any symptoms associated with coronavirus-19. Ebola Screen: No symptoms or risks identified at this time. Initial Sepsis Screen: Does the patient meet any 2 criteria? No. Patient's initial sepsis screen is negative. Does the patient have a suspected source of infection? No. Patient's initial sepsis screen is negative. Risk Assessment: Do you want to hurt yourself or someone else? Patient reports no desire to harm self or others. Onset of symptoms was May 28, 2025. 10:05 Method Of Arrival: Ambulatory hb 10:05 Acuity: JOSIAH 3 hb Historical: - Allergies: 10:06 Bactrim; hb - Home Meds: 10:06 Coreg 3.125 mg Oral tablet 1 tab 2 times per day for Hypertension [Active]; losartan hb 100 mg Oral tab 1 tab once daily [Active]; - PMHx: 10:06 Hypertension; hb - PSHx: 10:06 Cholecystectomy; Total abdominal hysterectomy; hb - Immunization history:: Adult Immunizations not immunized. - Infectious Disease History:: Denies. - Social history:: Smoking status: Patient denies any tobacco usage or history of. Patient/guardian denies using alcohol. Screenin:00 [facility] ED Fall Risk Assessment (Adult) History of falling in the last 3 months, zm including since admission No falls in past 3 months (0 pts) Confusion or Disorientation No (0 pts) Intoxicated or Sedated No (0 pts) Impaired Gait No (0 pts) Mobility Assist Device Used No (0 pt) Altered Elimination No (0 pt) Score/Fall Risk Level 0 - 2 = Low Risk Oriented to surroundings, Maintained a safe environment, Educated pt \T\ family on fall prevention, incl call for assistance when getting out of bed, Assessed \T\ reinforced patient's understanding of fall precautions, Hourly rounding (assess needs \T\ fall precautionary measures) done, Used ambulatory aids as needed (educated on \T\ assisted with), Used gait belt as appropriate. Abuse screen: Denies threats or abuse. Denies injuries from another. Nutritional screening: No deficits noted. Tuberculosis screening: No symptoms or risk factors identified. Assessment: 10:00 General: Appears in no apparent distress. uncomfortable, Behavior is calm, cooperative. zm Pain: Complains of pain in back, epigastric area and left upper quadrant Pain radiates to xiphoid area Pain currently is 5 out of 10 on a pain scale. Quality of pain is described as dull, Pain began 1 day ago. Neuro: Level of Consciousness is awake, alert, obeys commands, Oriented to person, place, time, situation. Cardiovascular: Heart tones S1 S2 present Capillary refill < 3 seconds in bilateral fingers Patient's skin is warm and dry. Rhythm is sinus rhythm. Respiratory: Airway is patent Respiratory effort is even, unlabored, Respiratory pattern is regular, symmetrical, Breath sounds are clear bilaterally. GI: Abdomen is round non-distended, Bowel sounds present X 4 quads. Abd is soft X 4 quads Abdomen is tender to palpation in epigastric area and left upper quadrant. : No signs and/or symptoms were reported regarding the genitourinary system. EENT: No signs and/or symptoms were reported regarding the EENT system. Derm: No signs and/or symptoms reported regarding the dermatologic system. Skin is intact, is healthy with good turgor, Skin is pink, warm \T\ dry. Musculoskeletal: No signs and/or symptoms reported regarding the musculoskeletal system. Circulation, motion, and sensation intact. Range of motion: intact in all extremities. 12:00 Reassessment: Patient appears in no apparent distress at this time. No changes from zm previously documented assessment. Patient and/or family updated on plan of care and expected duration. Pain level reassessed. Patient is alert, oriented x 3, equal unlabored respirations, skin warm/dry/pink. 12:42 Reassessment: Patient appears in no apparent distress at this time. No changes from zm previously documented assessment. Patient and/or family updated on plan of care and expected duration. Pain level reassessed. Patient is alert, oriented x 3, equal unlabored respirations, skin warm/dry/pink. Patient states feeling better. Patient states symptoms have improved. Vital Signs: 10:05 BP 174 / 92; Pulse 90; Resp 16; Temp 97.9; Pulse Ox 100% on R/A; Weight 111.13 kg; hb Height 5 ft. 1 in. ; Pain 5/10; 12:00 BP 145 / 73; Pulse 85; Resp 18; Temp 98.4; Pulse Ox 97% on R/A; zm 10:05 Body Mass Index 46.29 (111.13 kg, 154.94 cm) hb 10:05 Pain Scale: Adult hb [place] Coma Score: 10:00 Eye Response: spontaneous(4). Motor Response: obeys commands(6). Verbal Response: zm oriented(5). Total: 15. 12:00 Eye Response: spontaneous(4). Motor Response: obeys commands(6). Verbal Response: zm oriented(5). Total: 15. ED Course: 09:42 Patient arrived in ED. im 09:44 Vian[facility] Valladares [facility]C [facility] kb 09:44 Jose Christianson MD is Attending Physician. kb 10:00 Patient has correct armband on for positive identification. Bed in low position. Call zm light in reach. Side rails up X 1. Adult w/ patient. Provided Education on: call light use. Client placed on continuous cardiac and pulse oximetry monitoring. NIBP monitoring applied. prenatal teacher on. Pulse ox on. NIBP on. Door closed. Noise minimized. Lights dimmed. Warm blanket given. Verbal reassurance given. 10:04 Niki Mcgraw, RN is Primary Nurse. zm 10:06 Triage completed. hb 10:15 Initial lab(s) drawn, by ms, sent to lab. EKG done, by ED staff, reviewed by Vianey ROMERO. Inserted saline lock: 20 gauge in right antecubital area, using aseptic technique. Blood collected. Flushed with 10 mL NS. 10:27 Troponin HS Sent. zm 10:27 CBC with Diff Sent. zm 10:27 CMP Sent. zm 10:27 Lipase Sent. zm 10:36 XRAY Chest (1 view) In Process Unspecified. EDMS 10:40 Arm band placed on right wrist. zm 11:24 CT Abd/Pelvis - IV Contrast Only In Process Unspecified. EDMS 12:42 No provider procedures requiring assistance completed. IV discontinued, intact, iw bleeding controlled, No redness/swelling at site. Pressure dressing applied. Administered Medications: 10: Drug: Famotidine IVP 20 mg IVP once; dilute with 10 mL 0.9% NaCl; give over 2 minutes zm Route: IVP; Site: right antecubital; 12:44 Follow up: Response: No adverse reaction iw 10: Drug: Ondansetron IVP 4 mg IVP once; over 2 minutes Route: IVP; Site: right antecubital;zm 12:40 Follow up: Response: No adverse reaction; Nausea is decreased iw 10: Drug: NS 0.9% IV 1000 ml IV at 1 bolus Per protocol; to be given as a bolus over 60 zm minutes Route: IV; Rate: 1 bolus; Site: right antecubital; 12:43 Follow up: IV Status: Completed infusion iw 12:40 Drug: Magnesium Citrate PO Liquid 300 ml PO once Route: PO; zm 12:44 Follow up: Response: No adverse reaction iw Medication: 10:00 VIS not applicable for this client. zm Outcome: 12:15 Discharge ordered by MD. sinclair 12:42 Discharged to home ambulatory, with family, iw 12:42 Condition: good 12:42 Discharge instructions given to patient, family, Instructed on discharge instructions, follow up and referral plans. medication usage, Demonstrated understanding of instructions, follow-up care, medications, Prescriptions given X 1, 12:43 Patient left the ED. Signatures: Dispatcher [employer] Vianey [place], HEATHER DAVIS-Nitza Cespedes RN RN Bebe Velasquez RN RN hb Martinez, Zaina, RN RN Lakeisha Raymundo
[2025-05-30] MEDS ORDERED: MAGNESIUM CITRATE 300 ML BOT ONE (12:22)
[2025-05-30 14:24] VITALS: BP 145/73; TEMP 98.4; O2SAT 97
== END 2025-05-30 12:43 | disposition home or self-care (01) ==
LOC: ER 09:41
DX: K56.7 Ileus, unspecified (principal); R10.9 Unspecified abdominal pain; M54.9 Dorsalgia, unspecified; I10 Essential (primary) hypertension
CPT/HCPCS: 96361; 93005; 85025; 36415; 84484; 83690; 80053; 74177; 71045; 96375; 96374; 99285; Q9967; J2405; J7030